=== PATIENT | female | born 1995 | race Caucasian/White ===

== ENCOUNTER → 2023-06-15 13:01 | Outpatient (CLI) | payer OTHER, SELFPAY ==
--- NOTE | 2023-06-15 13:07 | DI.RAD.S_ITS ---
PROCEDURE: FL SHOULDER INJECTION MR/CT RT INDICATIONS: Pain in right shoulder COMPARISON: None. TECHNIQUE: The indications, alternatives, benefits, risks, and complications of the procedure were explained to the patient. Written informed consent was obtained and placed in the chart. The shoulder was examined fluoroscopically and a site for needle placement chosen for entry into the glenohumeral joint from an anterior approach. The skin was prepped and draped in a sterile fashion, and 1% lidocaine infiltrated from skin down to joint capsule. A spinal needle was inserted into the glenohumeral joint, and a small amount of iodinated contrast media injected to confirm intra-articular placement of the needle tip. This was followed by approximately 12 mL dilute solution of a gadolinium containing MR contrast agent. The needle was removed and a dressing was applied. The patient was given postprocedural instructions and sent to the MR suite for MR imaging. FINDINGS: A single fluoroscopic spot image demonstrates intra-articular location of injected iodinated contrast. IMPRESSION: Successful fluoroscopically guided administration of dilute Gadolinium solution into the shoulder joint for MR arthrogram. Dictated by: Shaheed Graves M.D. on 06/15/2023 at 17:26 Approved by: Shaheed Graves M.D. on 06/15/2023 at 17:26
--- NOTE | 2023-06-15 13:08 | DI.MRI.S_ITS ---
PROCEDURE: MR SHOULDER RT W CON INDICATIONS: Pain in right shoulder TECHNIQUE: After the administration of 12 mL of dilute intra-articular Gadolinium contrast, oblique coronal T1 and T2 spin echo with fat saturation, oblique sagittal T1 spin echo with and without fat saturation, oblique sagittal T2 fast spin echo with fat saturation, axial T1 spin echo with fat saturation through the shoulder. COMPARISON: None. FINDINGS: Image quality: Excellent. Rotator cuff: Mild tendinosis of the supraspinatus and infraspinatus, without tear. The teres minor is unremarkable. The subscapularis is unremarkable. No muscle edema or fatty atrophy. Bones and bursae: No significant degenerative change of the acromioclavicular joint. Type 1 acromion. No marrow edema. No acute fracture. No focal chondral defect. Capsule and soft tissues: No labral tear. The extra-articular and intra-articular biceps tendon are grossly unremarkable. IMPRESSION: Mild tendinosis of the supraspinatus and infraspinatus, without tear. Dictated by: Maddie Berry M.D. on 06/15/2023 at 15:17 Approved by: Maddie Berry M.D. on 06/15/2023 at 15:25
[2023-06-15] MEDS: SODIUM CHLORIDE 0.9 % 20 ML VIAL IV (14:21)
[2023-06-15] MEDS: LIDOCAINE 1% 20 ML INJ (14:21)
== END ==
PROVIDERS: Referring Provider Internal Medicine; Visit Provider Internal Medicine
DX: M75.91 Shoulder lesion, unspecified, right shoulder (principal); M25.511 Pain in right shoulder
CPT/HCPCS: 23350; 73040; 73222; A9579; Q9967

== ENCOUNTER → 2023-07-07 16:15 | Outpatient (CLI) | payer OTHER, SELFPAY ==
--- NOTE | 2023-07-07 16:16 | DI.MRI.S_ITS ---
PROCEDURE: MR CERVICAL SPINE WO CON INDICATIONS: ANESTHESIA OF THE SKIN TECHNIQUE: Noncontrast sagittal T1 spin echo and T2 fast spin echo, sagittal STIR, foraminal oblique sagittal T2 fast spin echo, and axial gradient echo or T2 fast spin echo through the cervical spine. COMPARISON: None. FINDINGS: Image quality: Excellent. Alignment and Curvature: There is normal bony alignment. Bone Marrow: Marrow demonstrates normal overall signal. Spinal Cord: Visualized spinal cord has normal size and signal. No cerebellar tonsillar herniation. Paraspinous Soft Tissues: No paravertebral masses. Prevertebral soft tissues are normal in thickness. C2-C3: Right facet hypertrophy. No canal stenosis or foraminal stenosis. C3-C4: No canal stenosis. Mild right uncovertebral joint hypertrophy and right facet hypertrophy. Mild right foraminal narrowing. Left foramen is patent. C4-C5: No canal stenosis. Small right uncovertebral joint hypertrophy. Bilateral facet hypertrophy, left greater than right. Mild right foraminal narrowing. No left foraminal narrowing. C5-C6: Normal appearance. C6-C7: Normal appearance. C7-T1: Normal appearance. IMPRESSION: 1. Mild cervical spondylitic change with mild multilevel cervical facet arthropathy. 2. No canal stenosis. 3. No foraminal nerve root impingement. Dictated by: Oniel Hummel M.D. on 07/07/2023 at 17:10 Approved by: Oniel Hummel M.D. on 07/07/2023 at 17:14
== END ==
DX: M47.812 Spondylosis without myelopathy or radiculopathy, cervical region (principal); M48.02 Spinal stenosis, cervical region; R20.0 Anesthesia of skin
CPT/HCPCS: 72141

== ENCOUNTER → 2023-07-19 16:01 | Outpatient (CLI) | payer OTHER, SELFPAY ==
--- NOTE | 2023-07-19 16:02 | DI.MRI.S_ITS ---
PROCEDURE: MR BRACHIAL PLEXUS WITHOUT CON COMPARISON: [facility], MR, MR CERVICAL SPINE WO CON, 07/07/2023, 16:30. INDICATIONS: PAIN IN RT SHOULDER TECHNIQUE: Noncontrast axial, coronal and sagittal T1 spin echo and stir through the affected brachial plexus. Additional axial T1 spin echo acquired through both brachial plexusus with large field of view. FINDINGS: Brachial plexus: The right brachial plexus is normal in appearance. No abnormal signal within the nerve roots. No masses are identified. Soft tissue: No supraclavicular adenopathy by size criteria. Superior pleural surfaces are normal in thickness. Jugular veins and carotid arteries appear normal in size. Bones: Marrow demonstrates normal overall signal. IMPRESSION: No cause for patient's symptoms is identified. The brachial plexus appears within normal limits. Dictated by: Rajiv Rae M.D. on 07/20/2023 at 11:44 Approved by: Rajiv Rae M.D. on 07/20/2023 at 11:52
== END ==
PROVIDERS: Referring Provider Orthopaedic Surgery; Visit Provider Orthopaedic Surgery
DX: M25.511 Pain in right shoulder (principal)
CPT/HCPCS: 71550